=== PATIENT | male | born 1980 | race Two or more races ===

== ENCOUNTER 2019-08-09 19:40 | Emergency (ER) | payer OTHER ==
[~2019-08-09] VITALS: Ht 157.5 cm; Wt 95.3 kg
--- NOTE | 2019-08-09 21:05 | NUR ---
PT BIB HIS FAMILY FOR PSYCH EVAL. PT AMBULATED TO THE BATHROOM TO GIVE A URINE SAMPLE. PT GAVE WHAT APPEARED TO BE WATER IN THE SAMPLE CUP. SAMPLE SENT TO LAB.
[2019-08-09 21:24] LABS: BASOPHILS # (AUTO) 0.1 /CMM (0.0-0.2); BASOPHILS % (AUTO) 0.8 % (0.0-2.0); EOSINOPHILS % (AUTO) 0.1 % (0.0-6.0); HEMATOCRIT 47 % (39-51); HEMOGLOBIN 16.1 g/dL (13.5-17.5); LYMPHOCYTES # (AUTO) 1.9 /CMM (0.8-4.8); LYMPHOCYTES % (AUTO) 21.5 % (20.0-44.0); MEAN CORPUSCULAR HGB CONC 34 g/dl (31.0-36.0); MEAN CORPUSCULAR VOLUME 90 fL (80-96); MONOCYTES # (AUTO) 0.7 /CMM (0.1-1.30); MONOCYTES % (AUTO) 7.4 % (2.0-12.0); NEUTROPHILS # (AUTO) 6.2 /CMM (1.8-8.9); NEUTROPHILS % (AUTO) 70.2 % (43.0-81.0); PLATELET COUNT (AUTO) 322 /CMM (150-450); RED BLOOD CELL COUNT(AUTO) 5.24 MIL/uL (4.5-6.0); WHITE BLOOD COUNT (AUTO) 8.9 K/uL (4.3-11.0)
[2019-08-09 21:36] LABS: CALCIUM, SERUM 8.8 mg/dL (8.5-10.1); CARBON DIOXIDE 30 mmol/L (21-32); CHLORIDE 104 mmol/L (98-107); CREATININE 0.9 mg/dL (0.6-1.3); GLUCOSE 110 mg/dL (74-106); POTASSIUM 3.1 mmol/L (3.5-5.1); SODIUM SERUM 143 mmol/L (136-145); UREA NITROGEN, BLOOD 5 mg/dL (7-18)
[2019-08-09 21:42] LABS: ALANINE AMINOTRANSFERASE 84 U/L (12-78); ALBUMIN 3.8 g/dL (3.4-5.0); ALCOHOL, BLOOD < 3 mg/dL (0-0); ALKALINE PHOSPHATASE 120 U/L (46-116); ASPARTATE AMINOTRANSFERASE 50 U/L (15-37); BILIRUBIN,DIRECT 0.2 mg/dL (0.0-0.2); BILIRUBIN,TOTAL 0.6 mg/dL (0.2-1.0); TOTAL PROTEIN, SERUM 7.9 g/dL (6.4-8.2)
[2019-08-09 21:47] LABS: ACETAMINOPHEN < 2 ug/ml (10-30); SALICYLATE < 2.8 mg/dL (2.8-20.0)
[2019-08-09] MEDS ORDERED: POTASSIUM CHLORIDE 20 MEQ TAB.PRT.SR PO ONE ×2 (22:00→22:45)
--- NOTE | 2019-08-09 22:42 | NUR ---
PT TAKES ARSITADA 882MG MONTHLY. LAST DOSE WAS ON 08/05/2019
--- NOTE | 2019-08-09 22:42 | NUR ---
PROPER URINE SAMPLE SENT TO LAB.
[2019-08-09 22:48] LABS: APPEARANCE,URINE Clear (CLEAR); BILIRUBIN,URINE Negative (NEGATIVE); BLOOD, URINE Negative Ery/uL (NEGATIVE); COLOR,URINE Yellow (YELLOW); KETONES,URINE 40 (NEGATIVE); LEUKOCYTE ESTERASE ,URINE Negative (NEGATIVE); NITRITE, URINE Negative (NEGATIVE); PROTEIN,URINE Negative (NEGATIVE); UGLUCOSE Negative (NEGATIVE); UROBILINOGEN,URINE 0.2 EU/dL (0.2)
--- NOTE | 2019-08-09 22:57 | NUR ---
PT REC'D MEDICATION ORDERED.
--- NOTE | 2019-08-09 23:08 | NUR ---
JAMAL CHEUNGW PAGED FOR PSYCH EVAL.
--- NOTE | 2019-08-09 23:09 | NUR ---
CALLED GINNY BERRY FOR EVAL.
--- NOTE | 2019-08-09 23:48 | NUR ---
[facility] TO [facility]
--- NOTE | 2019-08-10 00:38 | NUR ---
GINNY BERRY, IS AT THE BEDSIDE.
[2019-08-10] MEDS ORDERED: OLANZAPINE 5 MG TABLET PO ONE (01:00)
[2019-08-10] MEDS ORDERED: OLANZAPINE 5 MG TABLET ONE (01:08)
--- NOTE | 2019-08-10 01:16 | NUR ---
PT REC'D MEDICATION ORDERED. GINNY BERRY, IS AT THE BEDSIDE SPEAKING TO THE PT.
[2019-08-10 01:32] VITALS: BP 127/78
--- NOTE | 2019-08-10 01:32 | NUR ---
SPOKE TO [facility], SO RHONDA INTAKE, RE: FACE SHEET. RESENT FACE SHEET TO [phone] [facility]'S REQUEST.
--- NOTE | 2019-08-10 01:37 | NUR ---
PT APPEARS TO BE SLEEPING COMFORTABLY WITH NO S/S OF PAIN OR DISTRESS. VSS.
--- NOTE | 2019-08-10 02:11 | NUR ---
ACCEPTED TO [facility]. [phone]. DR MONTANO. ROOM NUMBER TO FOLLOW.
--- NOTE | 2019-08-10 02:33 | NUR ---
CALLED [id number]. WILL CALL BACK WITH AMBULANCE ETA.
--- NOTE | 2019-08-10 02:41 | NUR ---
AMBULN ETA [phone]
--- NOTE | 2019-08-10 03:17 | NUR ---
pt is going [address]
--- NOTE | 2019-08-10 03:18 | NUR ---
CALLING REPORT MATTHIAS HINES AT [facility].
--- NOTE | 2019-08-10 03:20 | NUR ---
Carlos Eduardo noel in [facility] - 08/10/19 at 0330 by [id number] CALLED REPORT TO MATTHIAS HINES AT [facility].
--- NOTE | 2019-08-10 03:29 | NUR ---
[facility] EMT ARRIVED. REPORT GIVEN TO EMT. TRANSFER PAPERWORK AND FACESHEET GIVEN TO EMT. PT LEFT VIA [facility]. PT'S SISTER AND MOTHER LEFT AND WILL F/U WITH [facility] TOMORROW. VSS.
== END 2019-08-10 03:29 ==
LOC: ER 19:40
DX: F29 Unspecified psychosis not due to a substance or known physiological condition (principal); F20.9 Schizophrenia, unspecified; F10.10 Alcohol abuse, uncomplicated; F17.200 Nicotine dependence, unspecified, uncomplicated; Y90.0 Blood alcohol level of less than 20 mg/100 ml
CPT/HCPCS: 36415; 80048; 80076; 80305; 80307; 80329; 81001; 85025; 99285; G0480; 81000-TC